=== PATIENT | female | born 1955 | race African-American/Black ===

== ENCOUNTER → 2017-04-28 | Day surgery (SDC) | payer BC ==
--- NOTE | 2017-04-28 10:36 | OP ---
DATE OF OPERATION: 04/28/2017 PREOPERATIVE DIAGNOSIS: Right breast calcifications on mammography. POSTOPERATIVE DIAGNOSIS: Right breast calcifications on mammography. PROCEDURE: Right stereotactic needle biopsy with clip. SURGEON: Marzena Manzano MD ANESTHESIA: Local. COMPLICATIONS: None. This is a sterile procedure. INDICATIONS FOR PROCEDURE: The patient presented for a screening mammogram that noted increasing, clustering microcalcifications in the upper right breast not too far from a previous biopsy she had in 2015. My recommendation was a needle biopsy. The procedure was discussed with her and all of the questions answered. PROCEDURE IN DETAIL: The patient was brought to [facility] and laid prone on the lorad table. Using the cranial approach, the calcifications in the upper right breast were identified. A stereo pair was obtained. A target was chosen. There was a positive stroke margin. Using Betadine and 1% lidocaine, a 10-gauge Suros device was used to take several cores from this area. The cores showed calcifications within them. These were handled using calcification protocol. A clip was deployed in the area. Hemostasis was assured with direct pressure. Steri-Strips were used to close the incision. She tolerated the procedure well and [facility]. MARZENA MANZANO M.D. [id number] MTDD
--- NOTE | 2017-04-29 12:10 | PATH ---
Surgical Pathology Report Patient Name: KIRILL MARTINEZ [facility]. Rec. #: [id number] /Age/Gender: 1955 (Age: 61) / F Account: [id number] Location: [facility] [place] Taken: 04/28/2017 Received: 04/28/2017 Reported: 04/29/2017 Physicians: Marzena Colbert M.D. Specimen(s) Received A: RIGHT BREAST SPECIMEN WITH CALCIFICATIONS B: RIGHT BREAST SPECIMEN WITHOUT CALCIFICATIONS Clinical History Nonpalpable lesion Mammographic findings: Microcalcification, suspicious Final Diagnosis A. RIGHT BREAST, WITH CALCIFICATION, STEREOTACTIC NEEDLE CORE BIOPSY: BENIGN BREAST TISSUE WITH FIBROCYSTIC CHANGES INCLUDING STROMAL FIBROSIS AND DUCTAL DILATATION, WITH ASSOCIATED CALCIFICATION. B. RIGHT BREAST, WITHOUT CALCIFICATION, STEREOTACTIC NEEDLE CORE BIOPSY: BENIGN BREAST TISSUE WITH FIBROCYSTIC CHANGES INCLUDING USUAL DUCTAL HYPERPLASIA (UDH), COLUMNAR CELL CHANGE, STROMAL FIBROSIS, AND DUCTAL DILATATION. MICROCALCIFICATIONS ARE IDENTIFIED. Electronically Signed Dayne Montenegro M.D. Gross Description A. Received in formalin, labeled "right breast with calcifications," are 5 casanova-yellow, cylindrical portions of fibroadipose tissue ranging from 1.8-2.3 cm. in length and averaging 0.2 cm. in diameter. The specimen is submitted in toto in one cassette. B. Received in formalin, labeled "right breast without calcifications," are 3 casanova-yellow, cylindrical portions of fibroadipose tissue ranging from 1.8-2.1 cm. in length and averaging 0.3 cm. in diameter. The specimen is submitted in toto in one cassette. Time to formalin fixation: 5 minutes Total formalin fixation time: Approximately 8 hours. 04/28/201704/28/2017
== END | disposition home or self-care (01) ==
LOC: FMAMMOTONE 08:29
PROVIDERS: ATTEND Surgery
PROC: 0HBT3ZX Excision of Right Breast, Percutaneous Approach, Diagnostic (ICD-10-PCS; principal; 2017-04-28)
DX: N60.31 Fibrosclerosis of right breast (principal); R92.1 Mammographic calcification found on diagnostic imaging of breast; N60.81 Other benign mammary dysplasias of right breast; N64.89 Other specified disorders of breast
CPT/HCPCS: 19081; 88305-TC